=== PATIENT | female | born 1955 | race Caucasian/White ===

== ENCOUNTER → 2016-10-08 | Outpatient (CLI) | payer OTHER ==
[~2016-10-08] MED LIST: ATOR10 PO; CARV6.25 PO; DILT240C7 PO; GLUCTAB PO; GLYB1TAB50 PO; HYDR-2768 PO; LISI-357 PO; VIVE0.05 TD
== END ==
LOC: PLAB 11:17
PROVIDERS: ATTEND Family Medicine
DX: R94.6 Abnormal results of thyroid function studies (principal)
CPT/HCPCS: 36415; 84443

== ENCOUNTER → 2017-01-07 | Outpatient (CLI) | payer OTHER ==
[2017-01-07 09:38] LABS: HEMATOCRIT 38.7 % (35.0-46.0); MEAN CELL VOLUME 89.2 FL (80.0-100.0); MEAN CORPUSCULAR HGB CONC 33.6 % (32.0-36.0); PLATELET COUNT 251 TH/MM3 (150-450); RED BLOOD COUNT 4.34 MIL/MM3 (4.00-5.30); RED CELL DISTRIBUTION WIDTH 13.4 % (11.6-17.2); REVIEW FLAG FINAL; WHITE BLOOD COUNT 5.5 TH/MM3 (4.0-11.0)
[2017-01-07 10:22] LABS: ALKALINE PHOSPHATASE 92 U/L (45-117); ALT (GPT) 45 U/L (10-53); ANION GAP 8 MEQ/L (5-15); AST (GOT) 20 U/L (15-37); BICARBONATE 30.6 MEQ/L (21.0-32.0); BLOOD UREA NITROGEN 13 MG/DL (7-18); CHLORIDE 99 MEQ/L (98-107); GLOMERULAR FILTRATION RATE 75 ML/MIN (>89); GLUCOSE,FASTING 204 MG/DL (74-99); HDL CHOLESTEROL 51.8 MG/DL (40.0-60.0); LDL CHOLESTEROL 58 MG/DL (0-99); POTASSIUM 4.3 MEQ/L (3.5-5.1); SODIUM (NA) 138 MEQ/L (136-145); TOTAL BILIRUBIN ADULT 0.8 MG/DL (0.2-1.0)
[2017-01-07 16:08] LABS: HEMOGLOBIN A1a 1.3 %; HEMOGLOBIN A1b 2.4 %; HEMOGLOBIN Ao 80.1 %; HEMOGLOBIN LA1C 2.6 %; HEMOGLOBIN P3 4.2 %
== END ==
LOC: PLAB 07:38
PROVIDERS: ATTEND Family Medicine
DX: M79.2 Neuralgia and neuritis, unspecified (principal); I10 Essential (primary) hypertension; E78.4 Other hyperlipidemia; E11.9 Type 2 diabetes mellitus without complications; N39.46 Mixed incontinence; K21.9 Gastro-esophageal reflux disease without esophagitis
CPT/HCPCS: 80053; 80061; 83036; 84443; 85027

== ENCOUNTER → 2017-05-14 | Outpatient (CLI) | payer OTHER ==
[2017-05-14 12:30] LABS: HEMATOCRIT 40.7 % (35.0-46.0); MEAN CELL VOLUME 90.6 FL (80.0-100.0); MEAN CORPUSCULAR HGB CONC 33.1 % (32.0-36.0); PLATELET COUNT 245 TH/MM3 (150-450); RED BLOOD COUNT 4.49 MIL/MM3 (4.00-5.30); REVIEW FLAG FINAL; WHITE BLOOD COUNT 4.8 TH/MM3 (4.0-11.0)
[2017-05-14 12:53] LABS: ANION GAP 7 MEQ/L (5-15); AST (GOT) 37 U/L (15-37); BICARBONATE 29.1 MEQ/L (21.0-32.0); BLOOD UREA NITROGEN 14 MG/DL (7-18); CHLORIDE 99 MEQ/L (98-107); GLOMERULAR FILTRATION RATE 75 ML/MIN (>89); GLUCOSE,FASTING 260 MG/DL (74-99); POTASSIUM 4.4 MEQ/L (3.5-5.1); SODIUM (NA) 135 MEQ/L (136-145)
[2017-05-14 13:05] LABS: ALKALINE PHOSPHATASE 86 U/L (45-117); ALT (GPT) 57 U/L (10-53); HDL CHOLESTEROL 47.5 MG/DL (40.0-60.0); LDL CHOLESTEROL 95 MG/DL (0-99)
[2017-05-14 16:35] LABS: HEMOGLOBIN A1a 1.4 %; HEMOGLOBIN A1b 2.7 %; HEMOGLOBIN Ao 78.2 %; HEMOGLOBIN LA1C 3.1 %; HEMOGLOBIN P3 4.5 %
== END ==
LOC: PLAB 09:12
PROVIDERS: ATTEND Family Medicine
DX: M79.2 Neuralgia and neuritis, unspecified (principal); I10 Essential (primary) hypertension; E78.4 Other hyperlipidemia; E11.9 Type 2 diabetes mellitus without complications; N39.46 Mixed incontinence; K21.9 Gastro-esophageal reflux disease without esophagitis; R94.6 Abnormal results of thyroid function studies
CPT/HCPCS: 80053; 80061; 83036; 84443; 85027

== ENCOUNTER → 2017-06-23 | Outpatient (CLI) | payer OTHER ==
[2017-06-23 12:52] LABS: ANION GAP 6 MEQ/L (5-15); AST (GOT) 33 U/L (15-37); BICARBONATE 29.6 MEQ/L (21.0-32.0); BLOOD UREA NITROGEN 14 MG/DL (7-18); CHLORIDE 101 MEQ/L (98-107); GLOMERULAR FILTRATION RATE 74 ML/MIN (>89); GLUCOSE,FASTING 214 MG/DL (74-99); POTASSIUM 4.5 MEQ/L (3.5-5.1); SODIUM (NA) 137 MEQ/L (136-145)
[2017-06-23 12:53] LABS: ALT (GPT) 51 U/L (10-53)
[2017-06-23 12:56] LABS: ALKALINE PHOSPHATASE 83 U/L (45-117); HDL CHOLESTEROL 48.6 MG/DL (40.0-60.0); LDL CHOLESTEROL 89 MG/DL (0-99); TOTAL BILIRUBIN ADULT 0.9 MG/DL (0.2-1.0)
[2017-06-23 14:28] LABS: HEMOGLOBIN A1a 1.8 %; HEMOGLOBIN A1b 2.5 %; HEMOGLOBIN Ao 78.6 %; HEMOGLOBIN LA1C 2.7 %; HEMOGLOBIN P3 4.4 %
== END ==
LOC: PLAB 07:53
PROVIDERS: ATTEND Family Medicine
DX: M79.2 Neuralgia and neuritis, unspecified (principal); I10 Essential (primary) hypertension; E78.4 Other hyperlipidemia; E11.9 Type 2 diabetes mellitus without complications; N39.46 Mixed incontinence; K21.9 Gastro-esophageal reflux disease without esophagitis; R94.6 Abnormal results of thyroid function studies; Z68.35 Body mass index [BMI] 35.0-35.9, adult
CPT/HCPCS: 80053; 80061; 83036

== ENCOUNTER → 2017-08-13 | Outpatient (CLI) | payer OTHER ==
[2017-08-13 16:25] LABS: HEMATOCRIT 41.4 % (35.0-46.0); MEAN CELL VOLUME 89.8 FL (80.0-100.0); MEAN CORPUSCULAR HEMOGLOBIN 29.6 PG (27.0-34.0); PLATELET COUNT 245 TH/MM3 (150-450); RED BLOOD COUNT 4.61 MIL/MM3 (4.00-5.30); RED CELL DISTRIBUTION WIDTH 13.2 % (11.6-17.2); REVIEW FLAG FINAL
[2017-08-13 16:35] LABS: BLOOD, URINE NEG (NEG); GLUCOSE,URINE 300 mg/dL (NEG); KETONE, URINE NEG (NEG); NITRITE,URINE NEG (NEG); PH, URINE 5.5 (5.0-8.5); SQUAMOUS EPITHELIAL CELL URINE <1 /hpf (0-5); URINE COLOR YELLOW (YELLW/STRAW)
[2017-08-13 16:47] LABS: HDL CHOLESTEROL 55.7 MG/DL (40.0-60.0); LDL CHOLESTEROL 126 MG/DL (0-99)
[2017-08-13 18:24] LABS: HEMOGLOBIN A1a 1.4 %; HEMOGLOBIN A1b 2.9 %; HEMOGLOBIN LA1C 3.3 %; HEMOGLOBIN P3 4.9 %
== END ==
LOC: PLAB 11:36
PROVIDERS: ATTEND Family Medicine
DX: M79.2 Neuralgia and neuritis, unspecified (principal); I10 Essential (primary) hypertension; E78.4 Other hyperlipidemia; E11.9 Type 2 diabetes mellitus without complications; N39.46 Mixed incontinence; K21.9 Gastro-esophageal reflux disease without esophagitis; R94.6 Abnormal results of thyroid function studies; Z68.35 Body mass index [BMI] 35.0-35.9, adult
CPT/HCPCS: 80061; 81001; 83036; 84443; 85027

== ENCOUNTER → 2017-09-24 | Outpatient (CLI) | payer OTHER ==
[2017-09-24 16:00] LABS: HEMATOCRIT 39.7 % (35.0-46.0); MEAN CELL VOLUME 89.6 FL (80.0-100.0); MEAN CORPUSCULAR HEMOGLOBIN 30.3 PG (27.0-34.0); MEAN CORPUSCULAR HGB CONC 33.9 % (32.0-36.0); PLATELET COUNT 276 TH/MM3 (150-450); RED BLOOD COUNT 4.43 MIL/MM3 (4.00-5.30); RED CELL DISTRIBUTION WIDTH 12.9 % (11.6-17.2); REVIEW FLAG FINAL; WHITE BLOOD COUNT 4.1 TH/MM3 (4.0-11.0)
[2017-09-24 16:22] LABS: ALT (GPT) 33 U/L (10-53); ANION GAP 9 MEQ/L (5-15); AST (GOT) 17 U/L (15-37); BLOOD UREA NITROGEN 15 MG/DL (7-18); CHLORIDE 99 MEQ/L (98-107); GLOMERULAR FILTRATION RATE 67 ML/MIN (>89); GLUCOSE,FASTING 214 MG/DL (74-99); POTASSIUM 4.2 MEQ/L (3.5-5.1); SODIUM (NA) 136 MEQ/L (136-145)
[2017-09-24 16:31] LABS: ALKALINE PHOSPHATASE 97 U/L (45-117); HDL CHOLESTEROL 49.3 MG/DL (40.0-60.0); HEMOGLOBIN A1a 1.9 %; HEMOGLOBIN A1b 2.5 %; HEMOGLOBIN Ao 78.4 %; HEMOGLOBIN LA1C 2.8 %; HEMOGLOBIN P3 4.3 %; LDL CHOLESTEROL 109 MG/DL (0-99)
== END ==
LOC: PLAB 11:43
PROVIDERS: ATTEND Family Medicine
DX: M79.2 Neuralgia and neuritis, unspecified (principal); I10 Essential (primary) hypertension; Z68.35 Body mass index [BMI] 35.0-35.9, adult; E78.4 Other hyperlipidemia; E11.9 Type 2 diabetes mellitus without complications; N39.46 Mixed incontinence; K21.9 Gastro-esophageal reflux disease without esophagitis; R94.6 Abnormal results of thyroid function studies
CPT/HCPCS: 36415; 80053; 80061; 82043; 83036; 84443; 85027

== ENCOUNTER → 2018-01-29 | Outpatient (CLI) | payer OTHER ==
[2018-01-29 14:21] LABS: HEMATOCRIT 42.5 % (35.0-46.0); HEMOGLOBIN 14.1 GM/DL (11.6-15.3); MEAN CELL VOLUME 88.6 FL (80.0-100.0); MEAN CORPUSCULAR HEMOGLOBIN 29.5 PG (27.0-34.0); MEAN CORPUSCULAR HGB CONC 33.3 % (32.0-36.0); MEAN PLATELET VOLUME 9.4 FL (7.0-11.0); PLATELET COUNT 300 TH/MM3 (150-450); RED CELL DISTRIBUTION WIDTH 13.1 % (11.6-17.2); WHITE BLOOD COUNT 4.7 TH/MM3 (4.0-11.0)
[2018-01-29 14:27] LABS: ALBUMIN 4.2 GM/DL (3.4-5.0); AST (GOT) 20 U/L (15-37); BICARBONATE 28.7 MEQ/L (21.0-32.0); BLOOD UREA NITROGEN 18 MG/DL (7-18); CALCIUM 9.9 MG/DL (8.5-10.1); CHLORIDE 101 MEQ/L (98-107); CHOLESTEROL 133 MG/DL (120-200); CREATININE 0.93 MG/DL (0.50-1.00); GLOMERULAR FILTRATION RATE 61 ML/MIN (>89); GLUCOSE,FASTING 171 MG/DL (74-99); SODIUM (NA) 138 MEQ/L (136-145)
[2018-01-29 14:41] LABS: ALKALINE PHOSPHATASE 88 U/L (45-117); ALT (GPT) 35 U/L (10-53); CHOLESTEROL/ HDL RATIO 3.18 RATIO; HDL CHOLESTEROL 41.7 MG/DL (40.0-60.0); LDL CHOLESTEROL 68 MG/DL (0-99); TOTAL BILIRUBIN ADULT 0.8 MG/DL (0.2-1.0); TOTAL PROTEIN 7.6 GM/DL (6.4-8.2); TRIGLYCERIDES 117 MG/DL (42-150)
[2018-01-29 19:09] LABS: HEMOGLOBIN A1C 8.8 % (4.3-6.0)
== END ==
LOC: PLAB 10:07
PROVIDERS: ATTEND Family Medicine
DX: I10 Essential (primary) hypertension (principal); E78.4 Other hyperlipidemia; E11.9 Type 2 diabetes mellitus without complications; N39.46 Mixed incontinence; R94.6 Abnormal results of thyroid function studies; K21.9 Gastro-esophageal reflux disease without esophagitis
CPT/HCPCS: 36415; 80053; 80061; 83036; 84443; 85027

== ENCOUNTER → 2018-03-04 | Outpatient (CLI) | payer OTHER ==
[2018-03-04 13:46] LABS: AUTOMATED NEUTROPHIL # 3.6 TH/MM3 (1.8-7.7); BASOPHIL % 0.7 % (0.0-2.0); EOSINOPHIL # 0.1 TH/MM3 (0-0.4); EOSINOPHIL % 2.5 % (0.0-4.0); HEMATOCRIT 41.1 % (35.0-46.0); HEMOGLOBIN 13.8 GM/DL (11.6-15.3); LYMPH % 26.3 % (9.0-44.0); LYMPHOCYTE # 1.4 TH/MM3 (1.0-4.8); MEAN CELL VOLUME 88.1 FL (80.0-100.0); MEAN CORPUSCULAR HEMOGLOBIN 29.7 PG (27.0-34.0); MEAN CORPUSCULAR HGB CONC 33.7 % (32.0-36.0); MEAN PLATELET VOLUME 9.3 FL (7.0-11.0); MONO % 5.4 % (0.0-8.0); MONOCYTE # 0.3 TH/MM3 (0-0.9); NEUT % 65.1 % (16.0-70.0); PLATELET COUNT 293 TH/MM3 (150-450); RED BLOOD COUNT 4.66 MIL/MM3 (4.00-5.30); RED CELL DISTRIBUTION WIDTH 13.4 % (11.6-17.2); WHITE BLOOD COUNT 5.5 TH/MM3 (4.0-11.0)
[2018-03-04 13:52] LABS: ALBUMIN 4.1 GM/DL (3.4-5.0); AST (GOT) 24 U/L (15-37); BICARBONATE 28.3 MEQ/L (21.0-32.0); BLOOD UREA NITROGEN 18 MG/DL (7-18); CALCIUM 9.7 MG/DL (8.5-10.1); CHLORIDE 98 MEQ/L (98-107); GLOMERULAR FILTRATION RATE 63 ML/MIN (>89); GLUCOSE,FASTING 153 MG/DL (74-99); SODIUM (NA) 137 MEQ/L (136-145)
[2018-03-04 13:53] LABS: CHOLESTEROL 142 MG/DL (120-200)
[2018-03-04 14:03] LABS: ALKALINE PHOSPHATASE 87 U/L (45-117); ALT (GPT) 37 U/L (10-53); CHOLESTEROL/ HDL RATIO 3.48 RATIO; FREE T4 1.04 NG/DL (0.76-1.46); HDL CHOLESTEROL 40.7 MG/DL (40.0-60.0); LDL CHOLESTEROL 72 MG/DL (0-99); TOTAL BILIRUBIN ADULT 1.2 MG/DL (0.2-1.0); TOTAL PROTEIN 7.7 GM/DL (6.4-8.2); TRIGLYCERIDES 149 MG/DL (42-150)
[2018-03-04 17:08] LABS: HEMOGLOBIN A1C 8.6 % (4.3-6.0)
[2018-03-05 19:53] LABS: THYROID PEROX AB (MICROSOMAL) 210 IU/mL (<9)
[2018-03-05 23:52] LABS: THYROGLOB ABS 1 IU/mL (< OR = 1)
== END ==
LOC: PLAB 09:52
PROVIDERS: ATTEND Internal Medicine Endocrinology, Diabetes & Metabolism
DX: E11.65 Type 2 diabetes mellitus with hyperglycemia (principal); E78.5 Hyperlipidemia, unspecified; E04.9 Nontoxic goiter, unspecified
CPT/HCPCS: 36415; 80053; 80061; 82043; 83036; 84439; 84443; 85025; 86376; 86800